=== PATIENT | female | born 1995 | race Caucasian/White ===

== ENCOUNTER 2022-03-03 17:39 | Emergency (ER) | payer OTHER ==
[~2022-03-03] VITALS: Ht 185.4 cm; Wt 144.2 kg
[2022-03-03] MEDS ORDERED: KETOROLAC 30 MG/ML VIAL IVP STA (18:13)
[2022-03-03] MEDS ORDERED: ORPHENADRINE 60 MG/2 ML (NORFLEX) AMP (ED ONLY) IV STA (18:13)
--- NOTE | 2022-03-03 18:27 | ED Back Pain ---
General Chief Complaint: Back Problems Stated Complaint: BACK PAIN Source of Information: Patient Exam Limitations: No Limitations History of Present Illness Date Seen by Provider: Mar 03, 2022 Time Seen by Provider: 18:07 Initial Comments Here with report of left-sided back pain that radiates lower and does cross a little bit over midline to the right side. States that she woke up with it at 8 AM and she has had it all day. She denies any recent injury. Never had anything like this before. She does have history of kidney stones. Denies blood in her urine or stool. Denies fever chills or other constitutional symptoms. She did try Tylenol at 2 PM and that did not help. Timing/Duration: 12 Hours Severity: Moderate Pain/Injury Location: Back Radiation: Other (Left flank) Method of Injury: Unknown Modifying Factors: Improves With Immobilization; Worse With Movement Associated Symptoms: muscle spasms; No fever, No weakness, No numbness in legs/feet, No tingling in legs/feet, No sensory/motor loss, No lower back pain, No loss of bladder control, No loss of bowel control Allergies and Home Medications Allergies Coded Allergies: No Known Drug Allergies (Unverified , 03/03/22) Patient Home Medication List Home Medication List Reviewed: Yes Review of Systems Constitutional: see HPI; No chills, No fever EENTM: No nose congestion, No throat pain Respiratory: No cough, No short of breath Cardiovascular: No chest pain, No palpitations Gastrointestinal: No abdominal pain; nausea; No vomiting Genitourinary: No dysuria, No hematuria : No Musculoskeletal: back pain, muscle pain Skin: No no symptoms reported All Other Systems Reviewed Negative Unless Noted: Yes Past Dkrodrx-Velqet-Wxrtkx Hx Patient Social History Tobacco Use?: No Substance use?: No Alcohol Use?: No Pt feels they are or have been: No Past Medical History Surgeries: No Respiratory: No Cardiac: No Neurological: No : No Genitourinary: Yes Kidney Stones Family Medical History Reviewed Nursing Family Hx No Pertinent Family Hx Physical Exam Vital Signs Vital Signs - First Documented 03/03/22 17:47 Temp 36.8 Pulse 89 Resp 18 B/P (MAP) 150/87 (108) Pulse Ox 97 O2 Delivery Room Air Capillary Refill : Height, Weight, BMI Height: '" Weight: lbs. oz. kg; BMI Method: General Appearance: No Apparent Distress, WD/WN HEENT: PERRL/EOMI, Pharynx Normal Neck: Non Tender, Supple Cardiovascular: Regular Rate, Rhythm, No Murmur Respiratory: Lungs Clear, Normal Breath Sounds Gastrointestinal: Non Tender, Soft Back: CVA Tenderness (L); No CVA Tenderness (R); Decreased Range of Motion, Muscle Spasm; No Vertebral Tenderness; Other (Tenderness mostly along leftVertebral in the upper lumbar lower thoracic region down to hip. Lesser extent on right side.) Neurologic/Psychiatric: Alert, Oriented x3, Normal Mood/Affect Skin: Normal Color, Warm/Dry Progress/Results/Core Measures Results/Orders Lab Results Laboratory Tests Test 03/03/22 18:14 03/03/22 18:18 Range/Units White Blood Count 7.9 4.3-11.0 10^3/uL Red Blood Count 4.91 3.80-5.11 10^6/uL Hemoglobin 13.9 11.5-16.0 g/dL Hematocrit 42 35-52 % Mean Corpuscular Volume 85 80-99 fL Mean Corpuscular Hemoglobin 28 25-34 pg Mean Corpuscular Hemoglobin Concent 34 32-36 g/dL Red Cell Distribution Width 12.9 10.0-14.5 % Platelet Count 333 130-400 10^3/uL Mean Platelet Volume 10.3 9.0-12.2 fL Immature Granulocyte % (Auto) 0 % Neutrophils (%) (Auto) 60 42-75 % Lymphocytes (%) (Auto) 31 12-44 % Monocytes (%) (Auto) 7 0-12 % Eosinophils (%) (Auto) 2 0-10 % Basophils (%) (Auto) 1 0-10 % Neutrophils # (Auto) 4.7 1.8-7.8 10^3/uL Lymphocytes # (Auto) 2.4 1.0-4.0 10^3/uL Monocytes # (Auto) 0.6 0.0-1.0 10^3/uL Eosinophils # (Auto) 0.1 0.0-0.3 10^3/uL Basophils # (Auto) 0.0 0.0-0.1 10^3/uL Immature Granulocyte # (Auto) 0.0 0.0-0.1 10^3/uL Sodium Level 142 135-145 MMOL/L Potassium Level 3.8 3.6-5.0 MMOL/L Chloride Level 108 H 98-107 MMOL/L Carbon Dioxide Level 20 L 21-32 MMOL/L Anion Gap 14 5-14 MMOL/L Blood Urea Nitrogen 8 7-18 MG/DL Creatinine 0.75 0.60-1.30 MG/DL Estimat Glomerular Filtration Rate 114 BUN/Creatinine Ratio 11 Glucose Level 86 70-105 MG/DL Calcium Level 9.2 8.5-10.1 MG/DL Corrected Calcium 9.0 8.5-10.1 MG/DL Total Bilirubin 0.4 0.1-1.0 MG/DL Aspartate Amino Transf (AST/SGOT) 13 5-34 U/L Alanine Aminotransferase (ALT/SGPT) 17 0-55 U/L Alkaline Phosphatase 50 40-136 U/L C-Reactive Protein High Sensitivity 1.37 H 0.00-0.50 MG/DL Total Protein 7.8 6.4-8.2 GM/DL Albumin 4.3 3.2-4.5 GM/DL Lipase 21 8-78 U/L Urine Color YELLOW Urine Clarity CLEAR Urine pH 5.5 5-9 Urine Specific Allons >=1.030 1.016-1.022 Urine Protein NEGATIVE NEGATIVE Urine Glucose (UA) NEGATIVE NEGATIVE Urine Ketones NEGATIVE NEGATIVE Urine Nitrite NEGATIVE NEGATIVE Urine Bilirubin NEGATIVE NEGATIVE Urine Urobilinogen 0.2 < = 1.0 MG/DL Urine Leukocyte Esterase NEGATIVE NEGATIVE Urine RBC (Auto) NEGATIVE NEGATIVE Urine RBC RARE /HPF Urine WBC NONE /HPF Urine Squamous Epithelial Cells 5-10 /HPF Urine Crystals NONE /LPF Urine Bacteria MODERATE H /HPF Urine Casts NONE /LPF Urine Mucus NEGATIVE /LPF Urine Culture Indicated NO My Orders Orders - DALIA MENDEZ MD Ketorolac Injection (Toradol Injection) (03/03/22 18:13) Orphenadrine Inj (Ed Only) (Norflex Inje (03/03/22 18:13) Cbc With Automated Diff (03/03/22 18:13) Comprehensive Metabolic Panel (03/03/22 18:13) Hs C Reactive Protein (03/03/22 18:13) Lipase (03/03/22 18:13) Ua Culture If Indicated (03/03/22 18:13) Ed Iv/Invasive Line Start (03/03/22 18:13) Urine Bedside (03/03/22 18:28) Ct Abd/Pelvis Wo(Kidney Stone) (03/03/22 19:01) Fentanyl Inj (Sublimaze Injection) (03/03/22 19:01) Ct Abdomen W (03/03/22 20:21) Ns Iv 1000 Ml (Sodium Chloride 0.9%) (03/03/22 20:30) Iohexol Injection (Omnipaque 350 Mg/Ml 1 (03/03/22 20:30) Received Contrast (Hold Metformin- Contr (03/03/22 20:30) Ns (Ivpb) (Sodium Chloride 0.9% Ivpb Bag (03/03/22 20:30) Fentanyl Inj (Sublimaze Injection) (03/03/22 20:27) Medications Given in ED Current Medications Medications Dose Ordered Sig/Steven Route Start Time Stop Time Status Last Admin Dose Admin Iohexol 100 ml ONCE ONCE IV 03/03/22 20:30 03/03/22 20:31 DC 03/03/22 20:34 100 ML Sodium Chloride 100 ml ONCE ONCE IV 03/03/22 20:30 03/03/22 20:31 DC 03/03/22 20:34 80 ML Sodium Chloride 1,000 ml @ 0 mls/hr Q0M ONCE IV 03/03/22 20:30 03/03/22 20:31 DC 03/03/22 20:52 999 MLS/HR Vital Signs/I&O 03/03/22 17:47 Temp 36.8 Pulse 89 Resp 18 B/P (MAP) 150/87 (108) Pulse Ox 97 O2 Delivery Room Air Progress Progress Note : Progress Note Seen and evaluated. IV, labs and UA ordered. Toradol 30 mg IV and Norflex 60 mg IV ordered. Monitor patient. 2019: CT abdomen pelvis kidney stone protocol ordered due to persistent pain. CT results noted. She did receive fentanyl 50 mcg IV for the back pain. There is concern about masses within the liver and there is recommendation for CT abdomen with contrast multiphase study so this will be ordered. Normal saline 1 L bolus ordered. Monitor patient. 2099: CT complete. We did give an additional dose of fentanyl for the back pain so that she could lay still on the table. Monitor patient. Pending CT results. 2128: Repeat CT complete. Still indeterminate with recommendation of MRI on a nonemergent outpatient basis. This was discussed with the patient. Pain did improve with the fentanyl down to 4 or 5. I will go ahead and give hydrocodone 5/325 1 tab p.o. now. Discharged home with return precautions. Patient verbali zed understanding of instructions and agreement with plan. Diagnostic Imaging Diagonstic Imaging: CT Plain Films/CT/US/NM/MRI: abdomen, pelvis Comments NAME: J CARLOS PASCAL [facility] REC#: [id number] PT STATUS: REG ER : 1995 PHYSICIAN: DALIA MENDEZ MD ADMIT DATE: 03/03/22/ER Draft Date of Exam:03/03/22 CT ABD/PELVIS WO(KIDNEY STONE) Clinical indication: Patient with back pain for several days, history of stones. Exam: CT exam of the abdomen and pelvis is performed without IV or oral contrast using stone protocol. Coronal and sagittal reformatted images were created. Auto Exposure Controls were utilized during the CT exam to meet ALARA standards for radiation dose reduction. Comparisons: None. Findings: Visualized lung bases are unremarkable. Bones show no significant abnormality. There are at least two ill-defined low-density areas within the right lobe of the liver. Largest one measures 3.7 cm in greatest axial dimension. These are indeterminate. Otherwise, liver is unremarkable. The spleen, pancreas and adrenal glands are unremarkable. There is a roughly 2 mm stone involving the upper pole of the right kidney. There are no stones in the ureter. There is no left renal stone seen. Both kidneys are otherwise unremarkable. There is no renal mass or hydronephrosis. Bladder is decompressed, otherwise unremarkable. There is bladder wall thickening which may be related to contraction. Uterus and adnexal structures are unremarkable. The appendix is unremarkable. There is no intestinal obstruction. There are multiple mesenteric lymph nodes seen and pericecal lymph nodes which are subcentimeter in greatest axis. There is wall thickening of a few loops of the jejunum which is nonspecific. Extra abdominal and extra pelvic soft tissue structures are unremarkable. Impression: 1: There are at least two indeterminate low-density areas involving the right lobe of the liver. Masses should be excluded. CT scan of the abdomen with contrast is suggested with arterial, portal venous, and delayed phases. 2: Nonobstructive right nephrolithiasis. There are no stones in the ureter or bladder. 3: Bladder is decompressed. There is bladder wall thickening which may be related to contraction. Cystitis should be excluded, if clinically suspected. 4: Multiple mesenteric and pericecal lymph nodes are seen which are nonspecific. There is wall thickening involving the jejunum. This may be related to enteritis versus contraction. Dictated on workstation # [id number] Dict: 03/03/221948 Trans: 03/03/222016 [facility] [id number] Interpreted by: MEAGHAN RICKS MD Electronically signed by: Diagonstic Imaging: CT Plain Films/CT/US/NM/MRI: abdomen Comments NAME: J CARLOS PASCAL [facility] REC#: [id number] PT STATUS: REG ER : 1995 PHYSICIAN: DALIA MENDEZ MD ADMIT DATE: 03/03/22/ER Draft Date of Exam:03/03/22 CT ABDOMEN W CLINICAL INDICATION: Evaluate liver density seen on previous noncontrast CT scan. EXAM: CT scan of the abdomen performed with 100 mL of Omnipaque IV contrast. Arterial, portal phase and delayed phases were obtained. Coronal and sagittal reformatted images were created. COMPARISON: CT scan of the abdomen and pelvis without contrast dated 03/03/2022. FINDINGS AND IMPRESSION: 1: Subtle appearance of the low-density areas involving the right lobe of liver which is better seen on the noncontrast exam. The previously seen largest 3.7 cm area in the right lobe of liver near the dome is also better seen on the prior study. The other smaller area is very ill-defined. These areas are better seen on the portal venous phase and are indeterminate. These two areas are indeterminate. Nonemergent MRI of the liver with and without contrast is suggested for further evaluation. 2: The remainder of the abdomen and pelvis is stable with no abnormal enhancement or interval acute finding. 3: Multiple mesenteric lymph nodes are again seen. 4: Bladder is stable with small amount of fluid and wall thickening. Cystitis should be excluded. Dictated on workstation # [id number] Dict: 03/03/222107 Trans: 03/03/222115 [facility] [id number] Interpreted by: MEAGHAN RICKS MD Electronically signed by: Departure Impression Primary Impression: Back pain Qualified Codes: M54.50 - Low back pain, unspecified Additional Impression: Liver lesion, right lobe Disposition: 01 HOME, SELF-CARE Condition: Stable Departure-Patient Inst. Decision time for Depature: 21:33 Referrals: NO,LOCAL PHYSICIAN (PCP/Family) Primary Care Physician Patient Instructions: Low Back Pain (DC) Add. Discharge Instructions: All discharge instructions reviewed with patient and/or family. Voiced unders tanding. You may take ibuprofen 800 mg every 8 hours as needed for pain. You may also take Tylenol/acetaminophen 1000 mg every 8 hours as needed for pain. You may use [id number] Icy Hot with lidocaine patches or cream, Aspercreme with lidocaine patches or cream, Salonpas with lidocaine patches or cream or similar items to area of concern per package directions. Follow-up with your doctor in a few days for recheck. Return for worse pain, fever, vomiting, weakness, breathing problems or other concerns as needed. You do have small, indeterminate lesion of the right lobe of the liver that was noted on CT scan. Radiology is recommending nonemergent MRI on an outpatient basis to follow-up on these lesions. Discussed this with your doctor. Return for worse pain, fever, vomiting, weakness, breathing problems or other concerns as needed. Drink plenty of fluids. Make sure you take the grrs-rjg-crpdvan pain medicines with food or fluid to prevent stomach upset. Scripts Hydrocodone Bit/Acetaminophen (HYDROcodone/APAP 5 MG/325 MG TAB) 1 Tab Tab 1 TAB PO Q6H for Pain, #6 TAB 0 Refills Prov: DALIA MENDEZ MD 03/03/22 DALIA MENDEZ MD Mar 03, 2022 18:27
[2022-03-03 18:28] LABS: BASOPHILS % (AUTO) 1 % (0-10); EOSINOPHILS # (AUTO) 0.1 10^3/uL (0.0-0.3); EOSINOPHILS % (AUTO) 2 % (0-10); HEMATOCRIT 42 % (35-52); HEMOGLOBIN 13.9 g/dL (11.5-16.0); LYMPHOCYTES # (AUTO) 2.4 10^3/uL (1.0-4.0); LYMPHOCYTES % (AUTO) 31 % (12-44); MEAN CORPUSCULAR HEMOGLOBIN 28 pg (25-34); MEAN CORPUSCULAR HGB CONC 34 g/dL (32-36); MEAN CORPUSCULAR VOLUME 85 fL (80-99); MEAN PLATELET VOLUME 10.3 fL (9.0-12.2); MONOCYTES # (AUTO) 0.6 10^3/uL (0.0-1.0); MONOCYTES % (AUTO) 7 % (0-12); NEUTROPHILS # (AUTO) 4.7 10^3/uL (1.8-7.8); NEUTROPHILS % (AUTO) 60 % (42-75); PLATELET COUNT 333 10^3/uL (130-400); WHITE BLOOD COUNT 7.9 10^3/uL (4.3-11.0)
[2022-03-03 18:30] LABS: BILIRUBIN,URINE NEGATIVE (NEGATIVE); CLARITY,URINE CLEAR; COLOR,URINE YELLOW; GLUCOSE, URINE (UA) NEGATIVE (NEGATIVE); KETONES,URINE NEGATIVE (NEGATIVE); LEUKOCYTE ESTERASE ,URINE NEGATIVE (NEGATIVE); NITRITE,URINE NEGATIVE (NEGATIVE); PH,URINE 5.5 (5-9); PROTEIN,URINE NEGATIVE (NEGATIVE)
[2022-03-03 18:38] LABS: ALBUMIN 4.3 GM/DL (3.2-4.5)
[2022-03-03 18:39] LABS: POTASSIUM 3.8 MMOL/L (3.6-5.0)
[2022-03-03 18:40] LABS: CALCIUM 9.2 MG/DL (8.5-10.1)
[2022-03-03 18:41] LABS: TOTAL PROTEIN 7.8 GM/DL (6.4-8.2)
[2022-03-03 18:41] LABS: RBC,URINE RARE /HPF
[2022-03-03 18:42] LABS: BACTERIA,URINE MODERATE /HPF
[2022-03-03 18:43] LABS: BILIRUBIN,TOTAL 0.4 MG/DL (0.1-1.0)
[2022-03-03 18:45] LABS: CREATININE SERUM 0.75 MG/DL (0.60-1.30)
[2022-03-03] MEDS ORDERED: fentaNYL INJ 100 MCG/2 ML AMP IVP STA ×2 (19:01→20:27)
--- NOTE | 2022-03-03 20:15 | Diagnostic Imaging Report ---
Clinical indication: Patient with back pain for several days, history of stones. Exam: CT exam of the abdomen and pelvis is performed without IV or oral contrast using stone protocol. Coronal and sagittal reformatted images were created. Auto Exposure Controls were utilized during the CT exam to meet ALARA standards for radiation dose reduction. Comparisons: None. Findings: Visualized lung bases are unremarkable. Bones show no significant abnormality. There are at least two ill-defined low-density areas within the right lobe of the liver. Largest one measures 3.7 cm in greatest axial dimension. These are indeterminate. Otherwise, liver is unremarkable. The spleen, pancreas and adrenal glands are unremarkable. There is a roughly 2 mm stone involving the upper pole of the right kidney. There are no stones in the ureter. There is no left renal stone seen. Both kidneys are otherwise unremarkable. There is no renal mass or hydronephrosis. Bladder is decompressed, otherwise unremarkable. There is bladder wall thickening which may be related to contraction. Uterus and adnexal structures are unremarkable. The appendix is unremarkable. There is no intestinal obstruction. There are multiple mesenteric lymph nodes seen and pericecal lymph nodes which are subcentimeter in greatest axis. There is wall thickening of a few loops of the jejunum which is nonspecific. Extra abdominal and extra pelvic soft tissue structures are unremarkable. Impression: 1: There are at least two indeterminate low-density areas involving the right lobe of the liver. Masses should be excluded. CT scan of the abdomen with contrast is suggested with arterial, portal venous, and delayed phases. 2: Nonobstructive right nephrolithiasis. There are no stones in the ureter or bladder. 3: Bladder is decompressed. There is bladder wall thickening which may be related to contraction. Cystitis should be excluded, if clinically suspected. 4: Multiple mesenteric and pericecal lymph nodes are seen which are nonspecific. There is wall thickening involving the jejunum. This may be related to enteritis versus contraction. Dictated by: Dictated on workstation # [id number]
[2022-03-03] MEDS ORDERED: NS 100 ML (IVPB) BAG IV ONE (20:30)
[2022-03-03] MEDS ORDERED: HOLD METFORMIN - RECEIVED CONTRAST 20 ML VIAL IV SCH (20:30)
[2022-03-03] MEDS ORDERED: IOHEXOL 350 MG/ML 100 ML (OMNIPAQUE 350) VIAL IV ONE (20:30)
[2022-03-03] MEDS ORDERED: NS IV 1000 ML 1,000 ML IV ONE (20:30)
--- NOTE | 2022-03-03 21:18 | Diagnostic Imaging Report ---
CLINICAL INDICATION: Evaluate liver density seen on previous noncontrast CT scan. EXAM: CT scan of the abdomen performed with 100 mL of Omnipaque IV contrast. Arterial, portal phase and delayed phases were obtained. Coronal and sagittal reformatted images were created. COMPARISON: CT scan of the abdomen and pelvis without contrast dated 03/03/2022. FINDINGS AND IMPRESSION: 1: Subtle appearance of the low-density areas involving the right lobe of liver which is better seen on the noncontrast exam. The previously seen largest 3.7 cm area in the right lobe of liver near the dome is also better seen on the prior study. The other smaller area is very ill-defined. These areas are better seen on the portal venous phase and are indeterminate. These two areas are indeterminate. Nonemergent MRI of the liver with and without contrast is suggested for further evaluation. 2: The remainder of the abdomen and pelvis is stable with no abnormal enhancement or interval acute finding. 3: Multiple mesenteric lymph nodes are again seen. 4: Bladder is stable with small amount of fluid and wall thickening. Cystitis should be excluded. Dictated by: Dictated on workstation # [id number]
[2022-03-03] MEDS ORDERED: HYDROcodone/APAP 5 MG/325 MG (LORTAB) TAB PO ONE (21:30)
[2022-03-03] MEDS ORDERED: ACHD5005 PO (21:32)
[2022-03-03 21:38] VITALS: BP 138/77
== END 2022-03-03 21:51 | disposition home or self-care (01) ==
LOC: ER 17:42
DX: M54.50 Low back pain, unspecified (principal); M54.6 Pain in thoracic spine; K76.9 Liver disease, unspecified; Z28.310 Unvaccinated for COVID-19
CPT/HCPCS: 36415; 74160; 74176; 80053; 81000; 83690; 84703; 85025; 86141